=== PATIENT | female | born 1945 | race Caucasian/White ===

== ENCOUNTER 2023-05-20 14:04 | Emergency (ER) | payer MEDICARE ==
[~2023-05-20] VITALS: Ht 170.2 cm; Wt 90.9 kg
--- NOTE | 2023-05-20 14:13 | NUR ---
pt is AOX4, GCS 15. DENIES PAIN OTHER THAN HEADACHE.
[2023-05-20 14:20] VITALS: TEMP 97.6
[2023-05-20] MEDS ORDERED: ondansetron 4mg rapidly disintigrating tab PO ONE (15:20)
[2023-05-20] MEDS ORDERED: ondansetron/PF 4mg/2ml inj IV ONE (15:20)
[2023-05-20 16:05] LABS: BASOPHILS % (AUTO) 0.2 % (0-1); EOSINOPHILS % (AUTO) 0.4 % (0-6); HEMATOCRIT 37.2 % (35.0-45.0); HEMOGLOBIN 11.7 g/dl (12.0-16.0); LYMPHOCYTES # (AUTO) 0.8 X10'3 (1.1-4.8); LYMPHOCYTES % (AUTO) 5.7 % (21-51); MEAN CORPUSCULAR HEMOGLOBIN 32.2 PG (27.0-31.0); MEAN CORPUSCULAR HGB CONC 31.4 g/dL (33.0-36.5); MEAN CORPUSCULAR VOLUME 102.6 FL (78-98); MEAN PLATELET VOLUME 8.1 FL (7.4-10.4); MONOCYTES % (AUTO) 7.3 % (2-12); NEUTROPHILS # (AUTO) 12.2 X10'3 (1.8-7.7); NEUTROPHILS % (AUTO) 86.4 % (42-75); PLATELET COUNT 301 X10'3 (140-440); RED BLOOD COUNT 3.63 X10'6 (4.20-5.60); RED CELL DISTRIBUTION WIDTH 15.8 % (11.5-14.5); WHITE BLOOD COUNT 14.1 X10'3 (4.5-11.0)
[2023-05-20 16:17] LABS: APTT 27 SECONDS (22-32); PROTHROMBIN TIME 11.1 SECONDS (9.0-12.0)
[2023-05-20 16:31] LABS: ALANINE AMINOTRANSFERASE 18 U/L (12-78); ALBUMIN 3.5 G/DL (3.4-5.0); ALBUMIN/GLOBULIN RATIO 1.1 (1.1-1.5); ALKALINE PHOSPHATASE 67 IU/L (46-116); ANION GAP 11 (8-16); ASPARTATE AMINO TRANSFERASE 14 U/L (10-37); BILIRUBIN,TOTAL 0.2 MG/DL (0.1-1.0); BLOOD UREA NITROGEN 50 MG/DL (7-18); BUN/CREATININE RATIO 33.6 (10.0-20.0); CALCIUM 9.3 MG/DL (8.5-10.1); CHLORIDE 104 MMOL/L (99-107); CREATININE 1.49 MG/DL (0.40-0.90); GLUCOSE 206 MG/DL (70-104); POTASSIUM 4.4 MMOL/L (3.5-5.1); SODIUM 138 MMOL/L (135-145); TOTAL CARBON DIOXIDE 23.3 MMOL/L (24-32); TOTAL PROTEIN 6.8 G/DL (6.4-8.2); eCRCL 31 ML/MIN; eGFR 34 ML/MIN
[2023-05-20 18:06] VITALS: BP 144/75; PULSE 88; RESP 14; O2SAT 99
[2023-05-20] MEDS ORDERED: ONDA4TAB12 PO (18:20)
[2023-05-20] MEDS ORDERED: acetaminophen 325mg tablet PO ONE (18:35)
== END 2023-05-20 19:18 | disposition home or self-care (01) ==
LOC: ER 14:04
DX: S06.0X9A Concussion with loss of consciousness of unspecified duration, initial encounter (principal); S00.03XA Contusion of scalp, initial encounter; Z88.2 Allergy status to sulfonamides; Z88.5 Allergy status to narcotic agent; Z79.899 Other long term (current) drug therapy; X58.XXXA Exposure to other specified factors, initial encounter; Y93.89 Activity, other specified; Y92.89 Other specified places as the place of occurrence of the external cause; Y99.8 Other external cause status
CPT/HCPCS: 36415; 70450; 72125; 80053; 85025; 85610; 85730; 93005; 96374; 99285; J2405

== ENCOUNTER 2023-09-19 10:27 | Day surgery (SDC) | payer MEDICARE ==
[2023-09-15 12:13] LABS: BASOPHILS # (AUTO) 0.1 X10'3 (0-0.2); BASOPHILS % (AUTO) 0.9 % (0-1); EOSINOPHILS # (AUTO) 0.2 X10'3 (0-0.9); EOSINOPHILS % (AUTO) 1.6 % (0-6); HEMATOCRIT 36.8 % (35.0-45.0); HEMOGLOBIN 11.6 g/dl (12.0-16.0); LYMPHOCYTES # (AUTO) 1.8 X10'3 (1.1-4.8); LYMPHOCYTES % (AUTO) 17.6 % (21-51); MEAN CORPUSCULAR HEMOGLOBIN 30.9 PG (27.0-31.0); MEAN CORPUSCULAR HGB CONC 31.6 g/dL (33.0-36.5); MEAN CORPUSCULAR VOLUME 97.7 FL (78-98); MONOCYTES # (AUTO) 1.5 X10'3 (0-0.9); NEUTROPHILS # (AUTO) 6.9 X10'3 (1.8-7.7); NEUTROPHILS % (AUTO) 65.9 % (42-75); PLATELET COUNT 334 X10'3 (140-440); RED BLOOD COUNT 3.77 X10'6 (4.20-5.60); RED CELL DISTRIBUTION WIDTH 16.3 % (11.5-14.5); WHITE BLOOD COUNT 10.5 X10'3 (4.5-11.0)
[2023-09-15 12:19] LABS: ALBUMIN 3.6 G/DL (3.4-5.0); ANION GAP 9 (8-16); BLOOD UREA NITROGEN 29 MG/DL (7-18); CALCIUM 9.2 MG/DL (8.5-10.1); CHLORIDE 104 MMOL/L (99-107); CREATININE 1.32 MG/DL (0.40-0.90); GLUCOSE 108 MG/DL (70-104); POTASSIUM 4.5 MMOL/L (3.5-5.1); SODIUM 140 MMOL/L (135-145); TOTAL CARBON DIOXIDE 27.4 MMOL/L (24-32); eGFR 39 ML/MIN
[2023-09-15 12:20] LABS: APTT 29 SECONDS (22-32); INR 1.1 INR; PROTHROMBIN TIME 11.5 SECONDS (9.0-12.0)
[2023-09-19] VITALS (11 sets, daily range): BP systolic 132–175; BP diastolic 59–75; PULSE 63–81; RESP 16; TEMP 98.2; O2SAT 98–100
[~2023-09-19] VITALS: Ht 160 cm; Wt 90.8 kg
[~2023-09-19 10:27] MED LIST: ONDA4TAB12 PO
[2023-09-19] MEDS ORDERED: normal saline 1000ml 1,000 ML IV SCH ×2 (10:45→10:50)
[2023-09-19] MEDS ORDERED: MIDAZolam 1mg/ml 10ml vial IV ONE (10:50)
[2023-09-19] MEDS ORDERED: fentaNYL/PF 50MCG/1 ML 2ML syringe IV ONE (10:50)
[2023-09-19] MEDS ORDERED: SOTA80TA73 PO (10:59)
[2023-09-19] MEDS ORDERED: OMEG100037 PO (10:59)
[2023-09-19] MEDS ORDERED: APIX5TAB3 PO (10:59)
[2023-09-19] MEDS ORDERED: LISI5TAB22 PO (10:59)
[2023-09-19] MEDS ORDERED: ALLO100T PO (10:59)
[2023-09-19] MEDS ORDERED: [UNRECOGNIZED DRUG - REMARK] PO (10:59)
[2023-09-19] MEDS ORDERED: Probiotic PO (10:59)
[2023-09-19] MEDS ORDERED: FURO-150 PO (10:59)
[2023-09-19] MEDS ORDERED: ATI1T PO (10:59)
[2023-09-19] MEDS ORDERED: LANTUS SQ (10:59)
[2023-09-19] MEDS ORDERED: Vitamin b12 SL (10:59)
[2023-09-19] MEDS ORDERED: CALC600T14 PO (10:59)
[2023-09-19] MEDS ORDERED: CHOL50004 PO (10:59)
[2023-09-19] MEDS ORDERED: ASCO-10 PO (10:59)
== END 2023-09-19 14:00 | disposition home or self-care (01) ==
LOC: SSTAY O 10:27
PROVIDERS: ATTEND Student in an Organized Health Care Education/Training Program
DX: I48.0 Paroxysmal atrial fibrillation (principal); I10 Essential (primary) hypertension; E78.5 Hyperlipidemia, unspecified; E11.9 Type 2 diabetes mellitus without complications; M10.9 Gout, unspecified; D64.9 Anemia, unspecified; F41.9 Anxiety disorder, unspecified; M81.0 Age-related osteoporosis without current pathological fracture; I27.29 Other secondary pulmonary hypertension; I95.1 Orthostatic hypotension; E66.01 Morbid (severe) obesity due to excess calories; Z68.35 Body mass index [BMI] 35.0-35.9, adult; Z86.718 Personal history of other venous thrombosis and embolism; Z88.2 Allergy status to sulfonamides; Z88.1 Allergy status to other antibiotic agents; Z88.8 Allergy status to other drugs, medicaments and biological substances; Z79.01 Long term (current) use of anticoagulants; Z79.899 Other long term (current) drug therapy; Z79.4 Long term (current) use of insulin
CPT/HCPCS: 36415; 80048; 85025; 85610; 85730; 92960; 93005; J2250; J3010; J7030; A4620

== ENCOUNTER → 2024-06-18 | Day surgery (SDC) | payer MEDICARE ==
[2024-06-18] VITALS (9 sets, daily range): BP systolic 136–161; BP diastolic 53–91; PULSE 64–97; RESP 14–18; TEMP 98.2; O2SAT 98–100
[~2024-06-18] VITALS: Ht 160 cm; Wt 91.2 kg
[~2024-06-18] MED LIST changes: +ALLO100T PO; +APIX5TAB3 PO; +ASCO-10 PO; +ATI1T PO; +CALC600T14 PO; +CHOL50004 PO; +FURO-150 PO; +LANTUS SQ; +LISI5TAB22 PO; +METO-384 PO; +OMEG100037 PO; -ONDA4TAB12 PO; +Probiotic PO; +SOTA80TA73 PO; +Vitamin b12 SL; +[UNRECOGNIZED DRUG - REMARK] PO; +normal saline 1000ml 1,000 ML IV SCH
[2024-06-18] MEDS: fentaNYL/PF 50MCG/1 ML 2ML syringe IV ONE (14:02)
[2024-06-18] MEDS: MIDAZolam 1mg/ml 10ml vial IV ONE (14:02)
== END | disposition home or self-care (01) ==
LOC: SSTAY O 11:21
PROVIDERS: ATTEND Internal Medicine Interventional Cardiology
DX: I48.0 Paroxysmal atrial fibrillation (principal); I48.92 Unspecified atrial flutter; I45.2 Bifascicular block; I12.9 Hypertensive chronic kidney disease with stage 1 through stage 4 chronic kidney disease, or unspecified chronic kidney disease; E11.22 Type 2 diabetes mellitus with diabetic chronic kidney disease; N18.30 Chronic kidney disease, stage 3 unspecified; E78.00 Pure hypercholesterolemia, unspecified; E66.01 Morbid (severe) obesity due to excess calories; M10.9 Gout, unspecified; F41.9 Anxiety disorder, unspecified; M81.0 Age-related osteoporosis without current pathological fracture; Z86.718 Personal history of other venous thrombosis and embolism; Z79.01 Long term (current) use of anticoagulants; Z79.899 Other long term (current) drug therapy; Z98.84 Bariatric surgery status; Z68.35 Body mass index [BMI] 35.0-35.9, adult; Z88.1 Allergy status to other antibiotic agents; Z88.2 Allergy status to sulfonamides; Z88.8 Allergy status to other drugs, medicaments and biological substances
CPT/HCPCS: 92960; 93005; J2250; J3010; J7030